=== PATIENT | male | born 1970 ===

== ENCOUNTER 2021-10-31 12:50 | Inpatient (IN) | payer SELFPAY ==
[~2021-10-31] VITALS: Ht 172.7 cm; Wt 82.7 kg
[2021-10-31 13:25] LABS: BASOPHILS ABSOLUTE AUTO 0.07 K/mm3 (0.00-0.23); BASOPHILS PERCENT AUTO 0 % (0-2); EOSINOPHILS ABSOLUTE AUTO 0.15 K/mm3 (0.00-0.68); EOSINOPHILS PERCENT AUTO 1 % (0-6); Hematocrit 42.2 % (37.0-53.0); Hemoglobin 14.4 g/dL (13.5-17.5); IMMATURE GRAN ABSOLUTE AUTO 0.15 K/mm3 (0.00-0.10); IMMATURE GRAN PERCENT AUTO 1 % (0-1); LYMPHOCYTES ABSOLUTE AUTO 2.07 K/mm3 (0.84-5.20); LYMPHOCYTES PERCENT AUTO 11 % (21-46); MONOCYTES ABSOLUTE AUTO 1.02 K/mm3 (0.16-1.47); MONOCYTES PERCENT AUTO 6 % (4-13); Mean Corpuscular HGB 32.6 pg (26.0-34.0); Mean Corpuscular HGB Conc 34.1 g/dL (31.5-36.5); Mean Corpuscular Volume 96 fL (80-100); Mean Platelet Volume 10.4 fL (9.1-12.4); NEUTROPHILS ABSOLUTE AUTO 14.73 K/mm3 (1.96-9.15); NEUTROPHILS PERCENT AUTO 81 % (41-73); Platelet Count 296 K/mm3 (150-400); RDW Coefficient Variation 11.9 % (11.7-14.2); RDW Standard Deviation 41.3 fL (35.1-46.3); Red Blood Cell Count 4.42 M/mm3 (4.30-5.90); White Blood Cell Count 18.19 K/mm3 (4.00-11.30)
[2021-10-31 13:36] LABS: Alanine Aminotransfer (ALT/SGP 45 U/L (12-78); Albumin, Blood 4.1 g/dL (3.4-5.0); Albumin/Globulin Ratio 1.3 (0.8-1.8); Alk Phos 71 U/L (50-136); Anion Gap 12 mmol/L (6-16); Aspartate Aminotrans (AST/SGOT 34 U/L (12-37); Bilirubin, Total 0.4 mg/dL (0.1-1.0); Blood Urea Nitrogen 14 mg/dL (8-24); Bun/Creatinine Ratio 18.3 (12.0-20.0); CHOL/HDL RATIO 3.9; CO2, Blood 21 mmol/L (21-32); Calcium, Blood 9.2 mg/dL (8.5-10.1); Chloride, Blood 106 mmol/L (98-108); Cholesterol 214 mg/dL (50-200); Creatinine, Blood 0.77 mg/dL (0.60-1.20); Globulin, Blood 3.1 g/dL (2.2-4.0); Glomerular Filtration Rate 107 (60-); Glucose, Blood 182 mg/dL (70-99); HDL Cholesterol 55 mg/dL (>39); LDL/HDL RATIO 2.5; Low Density Lipoprotein Chol 137 mg/dL (0-110); Potassium, Blood 3.3 mmol/L (3.5-5.5); Sodium, Blood 139 mmol/L (136-145); Total Protein, Blood 7.2 g/dL (6.4-8.2); Triglycerides 112 mg/dL (30-160); Very Low Density Lipoprot Chol 22 mg/dL (6-32)
[2021-10-31 14:15] LABS: Anti-Xa UFH, PHA Monitoring <0.10 IU/mL; International Normalized Ratio 1.09; Prothrombin Time Results 11.4 Sec (9.7-11.5)
--- NOTE | 2021-10-31 15:53 | NUR ---
PT ADMITTED TO ICU FROM ER FOR NSTEMI AT 1520. PT AWAKE AND ALERT. PT ABLE TO TRANSFER TO BED FROM [facility]. PT STATES HE IS FEELING BETTER. PT STATES CHEST PAIN IS NOW 2-3/10 TO MID SLIGHTLY LEFT CHEST, DOES NOT RADIATE. DESCRIBES PAIN PRESSURE, NOT WORSE WITH A DEEP BREATH, CONSTANT. DENIES NAUSEA. PT IS ON NTG GTT AT 130MCG/MIN, HEPARIN GTT AT 15UNITS/KG/HR, KCL 40MEQ INFUSING, NS AT 125CC/HR. BP STABLE. PT NSR RATE 70'S. SATS 98% ON RA, AFEBRILE. LUNGS CLEAR. CH TROPONIN OF 687 CALLED TO . INTERMEDIATE ACCOUNTANT AT BEDSIDE NOW.
[2021-10-31 17:55] LABS: Source, Urine Clean Catch
[2021-10-31 17:58] LABS: Appearance, Urine Clear (Clear); Bilirubin, Urine Neg (Neg); Blood, Urine 2+ (Neg); Color, Urine Yellow (P-Yellow); Glucose Qualitative, Urine 2+ (Neg); Ketones, Urine 3+ (Neg); Leukocyte Esterase, Urine Neg (Neg); Nitrite, Urine Neg (Neg); Protein, Urine Neg (Neg); Specific Gravity, Urine 1.025 (1.003-1.022); Urobilinogen, Urine NORM (Normal)
[2021-10-31 18:24] LABS: U Amphetamine Screen Not Detected; U Barbituate Screen Not Detected; U Benzodiazapine Screen Not Detected; U Buprenorphine Screen Not Detected; U Cannabinoids Screen DETECTED; U Cocaine Screen Not Detected; U Methadone Screen Not Detected; U Methamphetamine Screen Not Detected; U Opiates Screen DETECTED; U Oxycodone Screen Not Detected; U Phencyclidine Screen Not Detected; U Propoxyphene Screen Not Detected
--- NOTE | 2021-10-31 18:36 | NUR ---
PT TO [facility] [employer] AT 1830.
[2021-10-31 18:44] LABS: Red Blood Cells, Urine 0-2 /hpf (0-2); Squamous Epithelial Cells Rare /hpf (Few); White Blood Cells, Urine 0-2 /hpf (0-5)
[2021-10-31 18:45] LABS: Amorphous Light (0-Heavy); Bacteria Few /hpf; Mucus Light (0-Heavy)
--- NOTE | 2021-10-31 21:28 | NUR ---
REPORT FROM MIR RN, PATIENT IN DIRECTOR OF CONSUMER MARKETING AT START OF SHIFT. PATIENT TO ROOM FROM DIRECTOR OF CONSUMER MARKETING AT 2037. ALERT AND ORIENTED X4, FOLLOWS COMMANDS, MOVES ALL EXTREMETIES. 02 SATS 100% ON RA, LS CLEAR, DENIES ANY SOB. HR SR 60s, BP STABLE. NITRO DRIP INF, CALLED DR. HART TO CLARIFY MEDICATION ORDER, WILL TRITRATE NITRO OFF. PATIENT DENIES CP/PRESSURE. RIGHT RADIAL SITE WITH TR BAND IN PLACE, SITE WNL. WILL DEFLATE TR BAND PER ORDERS. ARM BOARD ALSO IN PLACE AND PATIENT TEACHING PROVIDED ABOUT RIGHT ARM RESTRICTIONS. WILL RESTART HEPARIN AT 0500 TOMORROW PER DOCTORS ORDERS, PHARMACY NOTIFIED. DIET ORDERED FOR PATIENT PER DOCTOR HART. PATIENT IS INDEPENDENT IN BED, USES URINAL. CALL LIGHT IN REACH. SEE SHIFT ASSESSMENT FOR MORE INFORMATION.
--- NOTE | 2021-10-31 22:29 | NUR ---
EKG DONE PSOT PROCEDURE. IN CHART. STARTED DEFLATING TR BAND AT 2225.
[2021-11-01 04:09] LABS: Hematocrit 37.9 % (37.0-53.0); Hemoglobin 12.9 g/dL (13.5-17.5); Mean Corpuscular HGB 32.4 pg (26.0-34.0); Mean Corpuscular Volume 95 fL (80-100); Mean Platelet Volume 10.1 fL (9.1-12.4); Platelet Count 221 K/mm3 (150-400); RDW Standard Deviation 41.8 fL (35.1-46.3); Red Blood Cell Count 3.98 M/mm3 (4.30-5.90); White Blood Cell Count 12.26 K/mm3 (4.00-11.30)
[2021-11-01 04:36] LABS: Bun/Creatinine Ratio 13.6 (12.0-20.0); Calcium, Blood 8.3 mg/dL (8.5-10.1); Creatinine, Blood 0.66 mg/dL (0.60-1.20); Potassium, Blood 3.9 mmol/L (3.5-5.5)
--- NOTE | 2021-11-01 05:45 | NUR ---
SHIFT SUMMARY PATIENT REMAINS ALERT AND ORIENTED X4. 02 SATS >95% ON RA, LS CLEAR, DENIES SOB. HR SB-SR 50s-60s, BP STABLE. DENIES CP/PRESSURE. EKGs IN CHART. HEPARIN DRIP RESTARTED, CALLED AND VERIFIED RATE WITH PHARMACY, TO BE CONTINUED AT PREVIOUS RATE. RIGHT RADIAL SITE WNL, TR BAND REMOVED AT APPOX 0120, CLEAR TEGADERM DRESSING IN PLACE, NO HEMATOMA, SENSATION INTACT. ARM BOARD IN PLACE. PATIENT CONTINENT, AND INDEPENDENT IN ROOM. CALL LIGHT IN REACH.
--- NOTE | 2021-11-01 08:12 | NUR ---
ASSUMED CARE AT 0700, PT AWAKE AND SPEAKING WITH ON THE PHONE, DENIES ANY CHEST PAIN, RIGHT RADIAL SITE C/D/I WITH TRANSPARENT DRESSING. PULSES PALP X 4, NO EDEMA. HEPARIN INFUSING @ 15U/KG NS@ 125CC/HR. INDEPENDENT IN ROOM WITHOUT ANY COMPLAINTS.
--- NOTE | 2021-11-01 09:53 | NUR ---
AND BOTH ROUNDED ON PATIENT, FLUIDS DC'D, CONTINUE HEPARIN FOR 24HOURS (1500 TODAY), ENCOURAGE MOBILITY, CHANGE STATUS TO PCU.
--- NOTE | 2021-11-01 10:43 | NUR ---
UP AND AMBULATING INDEPENDENTLY IN ROOM, FAMILY IN TO VISIT. NO COMPLAINTS.
--- NOTE | 2021-11-01 11:55 | NUR ---
ADELAIDE REMAINS PAIN FREE, HEPARIN INFUSING. FAMILY WITH HIM. UP IN ROOM INDEPENDENTLY.
--- NOTE | 2021-11-01 14:18 | NUR ---
PT'S BP WAS ELEVATED, IN TALKING WITH THE PATIENT HE WAS USING THE URINAL WHEN IT WENT OFF. RETAKE IS IMPROVED, WILL NOT MEDICATE AT THIS TIME.
--- NOTE | 2021-11-01 17:25 | NUR ---
PT SITTING UP ON THE EDGE OF THE BED, VISITNG WITH FAMILY WHO HAS RETURNED FOR THE AFTERNOON. UPDATE TO PATIENT THAT WE ARE WAITING FOR TO CONFIRM DC OF THE HEPARIN. HE IS EATING HIS DINNER. CONTINUES TO BE UP AND ABOUT IN THE ROOM WITHOUT ANY CHEST PAIN.
--- NOTE | 2021-11-01 17:57 | NUR ---
DC'D THE HEPARIN. PT GIVEN ROBE AND DISCONNECTED FROM MONITORS TO WALK ABOUT THE HALLS INSTRUCTED. HE IS WITH AND SON. INSTRUCTED TO RETURN IMMEDIATELY IF ANY CHEST PAIN. PT VERY PLEASED TO BE ABLE TO WALK ABOUT.
--- NOTE | 2021-11-01 18:06 | NUR ---
ADELAIDE RETURNS FROM WALKING THE HALLS, DENIES ANY PAIN OR DISCOMFORT WITH WALK. HE STATES HE IS READY TO RUN. TOLD HIM, "NOT TODAY". PT IS BACK IN ROOM, BP IS ELEV. 150/106. STATES HE DOESN'T FEEL BADLY. QUESTIONS NUMBERS, EDUCATION REGARDING WHAT HE HAS BEEN RUNNING AND HOW IT IS TREATED.
--- NOTE | 2021-11-01 21:22 | NUR ---
ASSUMED PT CARE FROM [facility] AT 1915 PT IS RESTING IN BED IN [employer] SPIRITS; CONVERSING WITH FAMILY VIA TELEPHONE. RIGHT RADIAL SITE HAS ARM BOARD IN PLACE; SITE ASSESSED WITH TEGADERM IN PLACE AND NO SIGNS OF OOZING OR HEMATOMA. PT DENIES ANY CHEST PAIN, SOB, AND/OR N/V. VSS, SEE FLOWSHEET. PT IS NSR WITH HR 70'S. SLIGHTLY DIAPHORETIC ON FOREHEAD. PER REPORT PT DOES HAVE A HX OF DRINKING BEER DAILY. EDUCATED PT REGARDING HIGH BLOOD PRESSURE AND THE IMPORTANCE OF HIM ESTABLISHING A PCP OUTPATIENTLY TO MANAGE. PT VERBALIZED UNDERSTANDING. INDEPENDENT IN ROOM. STATED HE HAD A DIFFICULT TIME FALLING ASLEEP LAST NIGHT; INFORMED HIM I WOULD CALL REGARDING A MELATONIN DOSE THAT HE TAKES AT HOME. SEE SHIFT ASSESSMENT FOR FURTHER DETAILS.
--- NOTE | 2021-11-02 06:01 | NUR ---
END OF SHIFT SUMMARY NO SIGNIFICANT CHANGES. PT SLEPT T/O SHIFT. VSS, SEE FLOWSHEET. INDEPENDENT IN ROOM AND WITH REPOSITIONING. WILL CONTINUE TO MONITOR UNTIL REPORT IS HANDED OFF TO ONCOMING RN.
--- NOTE | 2021-11-02 07:33 | NUR ---
REPORT FROM GISSEL ELI RN, MARLO IN NO DISTRESS, MAKES NEEDS KNOWN, GOAL FOR THE DAY IS TO BE DISCHARGED HOME, CALL LIGHT WITH IN REACH, WAITING FOR BREAKFAST, DENEIS PAIN OR N/V, WCTM
--- NOTE | 2021-11-02 10:26 | NUR ---
friend in visiting
[2021-11-02] MEDS ORDERED: ASPI81CH PO (11:20)
[2021-11-02] MEDS ORDERED: ATOR80 PO (11:21)
[2021-11-02] MEDS ORDERED: CLOP75 PO (11:21)
--- NOTE | 2021-11-02 12:39 | NUR ---
DISCHARGE INSTRUCTIONS GIVEN TO PATIENT AND WOFE, BOTH STATED UNDERSTANDING AND CARDIOLOGY FOLLOW UP IN 2-3 WEEKS
== END 2021-11-02 12:25 | disposition home or self-care (01) | DRG 247 ==
LOC: ER 12:50 → ICUE 14:42 → ICUW 14:42
PROVIDERS: Nurse Practitioner Acute Care; Student in an Organized Health Care Education/Training Program; ADMIT Family Medicine
PROC: 027135Z Dilation of Coronary Artery, Two Arteries with Two Drug-eluting Intraluminal Devices, Percutaneous Approach (ICD-10-PCS; principal; 2021-10-31)
PROC: 02C03ZZ Extirpation of Matter from Coronary Artery, One Artery, Percutaneous Approach (ICD-10-PCS; 2021-10-31)
PROC: 4A023N7 Measurement of Cardiac Sampling and Pressure, Left Heart, Percutaneous Approach (ICD-10-PCS; 2021-10-31)
PROC: B2111ZZ Fluoroscopy of Multiple Coronary Arteries using Low Osmolar Contrast (ICD-10-PCS; 2021-10-31)
DX: I21.4 Non-ST elevation (NSTEMI) myocardial infarction (principal); E87.6 Hypokalemia; E78.5 Hyperlipidemia, unspecified; D72.829 Elevated white blood cell count, unspecified; R73.9 Hyperglycemia, unspecified; I25.10 Atherosclerotic heart disease of native coronary artery without angina pectoris
CPT/HCPCS: 36415; 71045; 80048; 80053; 80061; 81001; 82947; 83036; 83735; 84484; 85025; 85027; 85347; 85520; 85610; 85651; 85730; 86140; 86850; 86900; 86901; 93005; 93010; 93306; 93454; 96365; 96366; 96368; 96375; 99152; 99153; 99291-25; A9270; C1725; C1757; C1769; C1874; C1887; C1894; C9600; J0461; J1644; J2250; J3010; J3246; J3480; J7030; J7040; J7050; Q9967

== ENCOUNTER 2021-12-14 07:58 | Day surgery (SDC) | payer OTHER ==
[~2021-12-14] VITALS: Ht 172.7 cm; Wt 79.5 kg
[~2021-12-14 07:58] MED LIST: ASPI81CH PO; ATOR80 PO; CLOP75 PO
[2021-12-14] MEDS ORDERED: Nitroglycerin1 EAC3 TOP (08:45)
[2021-12-14] MEDS ORDERED: NITR.4SL SL (08:46)
[2021-12-14] MEDS ORDERED: ALLO300 PO (08:46)
--- NOTE | 2021-12-14 10:25 | NUR ---
PT RETURNED FROM [employer] COORDINATOR SITTING UP IN A RECLINER. PT WITH RRAD ACCESS AND TR BAND IN PLACE. NO BLEEDING, OOZING OR HEMATOMA NOTED. PT AOX4, DENIES ANY PAIN. FAMILY SITTING AT CHAIR SIDE. VSS. WILL CONTINUE TO MONITOR.
[2021-12-14] MEDS ORDERED: AMLO5 PO (10:37)
--- NOTE | 2021-12-14 13:45 | NUR ---
TR BAND FULLY DEFLATED, NO SWELLING/HEMATOMA.
--- NOTE | 2021-12-14 14:10 | NUR ---
DISCHARGE PT AMBULATED TO RESTROOM AND DRESSED SELF WITH NO COMPLICATIONS. PT WITH RRAD ACCESS, TR BAND REMOVED, SITE CLEANED, CLOTH DOT DRESSING APPLIED WHITE BOARD PLACED BACK ON R ARM. NO BLEEDING, OOZING OR HEMATOMA NOTED. PT DENIES ANY PAIN. PT STATES HIS UNDERSTANDING OF DC AND SITE CARE INSTRUCTIONS AND DENIES ANY QUESTIONS OR CONCERNS UPON DC. IV DCD WITH CATH IN TACT. VSS. R ARM PLACED IN SLING. PT TAKEN TO EXIT VIA WHEELCHAIR WHERE WAS WAITING WITH VEHICLE.
== END 2021-12-14 14:30 | disposition home or self-care (01) ==
LOC: MHTC 07:58
PROC: 027034Z Dilation of Coronary Artery, One Artery with Drug-eluting Intraluminal Device, Percutaneous Approach (ICD-10-PCS; principal; 2021-12-14)
PROC: B2111ZZ Fluoroscopy of Multiple Coronary Arteries using Low Osmolar Contrast (ICD-10-PCS; principal; 2021-12-14)
PROC: 4A023N7 Measurement of Cardiac Sampling and Pressure, Left Heart, Percutaneous Approach (ICD-10-PCS; principal; 2021-12-14)
DX: I21.11 ST elevation (STEMI) myocardial infarction involving right coronary artery (principal); I25.118 Atherosclerotic heart disease of native coronary artery with other forms of angina pectoris; E78.5 Hyperlipidemia, unspecified; R73.03 Prediabetes; I25.2 Old myocardial infarction; Z86.718 Personal history of other venous thrombosis and embolism; Z79.82 Long term (current) use of aspirin; Z79.899 Other long term (current) drug therapy
CPT/HCPCS: 76937; 85347; 92978; 93454; 99152; 99153; C1725; C1753; C1769; C1874; C1887; C1894; C9600; J1644; J2250; J3010; J7030; J7050; Q9967

== ENCOUNTER → 2024-12-31 | Outpatient (CLI) | payer OTHER ==
[~2024-12-31] MED LIST changes: +ALLO300 PO; +AMLO5 PO; +NITR.4SL SL; +Nitroglycerin1 EAC3 TOP
== END | disposition home or self-care (01) ==
LOC: LAB SHORT 09:43 → LAB 09:43
DX: R73.01 Impaired fasting glucose (principal)
CPT/HCPCS: 36415; 83036